=== PATIENT | male | born 1975 | race African-American/Black ===

== ENCOUNTER 2018-01-06 15:55 | Emergency (ER) | payer BC ==
[~2018-01-06] VITALS: Ht 190.5 cm; Wt 154.2 kg
--- NOTE | ~2018-01-06 | EKG ---
[address] [address] [place] [address] ELECTROCARDIOGRAM REPORT Name: JOEY NULL Joyce [id number] Admission: 01/06/18 Attend Phys: Discharge: Date of : 77 Report #: [id number] THIS REPORT FOR: //name// [facility] ED Test Date: 2018-01-06 Test Time: 16:00:02 Pat Name: JOEY NULL Department: Room: Gender: Acquisition Specialist: [facility] : 1975 Requested By: Nicki Thakkar Order Number: [id number] MD: Reji Archer Measurements Intervals [place] Rate: 96 P: 53 OK: 157 QRS: 36 QRSD: 84 T: -49 QT: 348 QTc: 440 Interpretive Statements Sinus rhythm Probable left atrial enlargement Nonspecific ST and T wave abnormality No previous ECG available for comparison Electronically Signed On 01-06-2018 17:07:18 CDT by Reji Archer [email or web address] <ELECTRONICALLY SIGNED> By: Reji Archer MD, [facility] 01/06/18 1707 1600 [facility] Reji Archer MD, FACC /EPI
[~2018-01-06 15:55] MED LIST: INVOKAMET 150-1 EACH PO; INVOKAMET 50-11 EACH PO; MAXZIDE 75-501 EACH PO; TRAMADOL 50 MG50 MG PO; TRIAMTERENE-HC1 EAC1; TRIAMTERENE-HC1 EAC1 PO; TRIBENZOR 20-51 EACH PO; [UNRECOGNIZED DRUG - REMARK]
[2018-01-06 16:22] LABS: ABSOLUTE NEUTROPHILS 7.2 thou/uL (1.4-8.2); HEMOGLOBIN 14.8 gm/dL (14.0-18.0); LYMPHOCYTES 29.1 % (24.0-44.0); MCH 27.9 pg (26.0-34.0); MCV 84.5 fL (80.0-100.0); MONOCYTES 6.7 % (1.0-8.0); PLATELET COUNT 222 thou/uL (150-400); POLYS 60.2 % (36.0-66.0); RBC 5.32 mil/uL (4.50-6.00); RDW 15.3 % (10.5-14.5)
[2018-01-06 16:30] LABS: ANION GAP 10 mmol/L (7-16); BUN 17 mg/dL (7-18); CALCIUM 10.5 mg/dL (8.5-10.1); CHLORIDE 102 mmol/L (98-107); CO2 29 mmol/L (21-32); CREATININE 1.1 mg/dL (0.7-1.3); GLUCOSE 127 mg/dL (74-106); POTASSIUM 3.9 mmol/L (3.5-5.1); SODIUM 141 mmol/L (136-145)
[2018-01-06 16:38] LABS: TROPONIN-I < 0.04 ng/mL (<0.06)
[2018-01-06] MEDS ORDERED: UNICOMPLEX M TA1 TA1 PO (16:39)
[2018-01-06] MEDS ORDERED: ST. JOSEPH ASPI81 MG PO (16:39)
== END 2018-01-06 19:36 | disposition home or self-care (01) ==
LOC: ER 15:55
PROVIDERS: Nurse Practitioner
DX: R07.89 Other chest pain (principal); I10 Essential (primary) hypertension